=== PATIENT | male | born 1990 | race Caucasian/White ===

== ENCOUNTER 2017-11-15 12:53 | Emergency (ER) | payer OTHER, SELFPAY ==
[2017-11-15 13:07] VITALS: BP 137/90; PULSE 92; RESP 20; TEMP 36.6; O2SAT 98; BMI 40.1
--- NOTE | 2017-11-15 13:30 | HMH.EDUTC ---
[facility] [place] Disposition Clinical Impression: Pain, dental Disposition: Home, Self-Care Condition on Discharge: Good Instructions: DI for Dental Pain Additional Instructions: Take medication as prescribed Return if needed Follow up with family doctor/dentist IZAIAH for further treatment and evaluation Warm/cold compresses to jaw may help with swelling and pain Call dentist office after leaving [facility] to try to make appointment Prescriptions: Ibuprofen [Ibuprofen 600mg Tab] 600 mg PO Q6H PRN #20 tab PRN Reason: Moderate Pain Penicillin V Potassium 500 mg PO QID #28 tab Referrals: Provider,Referral, [Primary Care Provider] - Edwin Walsh [Referring] - Time of Disposition: 13:39 Medical Decision Making - Medical Records Medical records reviewed: Yes: I reviewed the patient's medical records. Vital Signs: 11/15/17 13:07 Temperature 98 F Temperature Source Temporal Artery Scan Pulse Rate [Right] 92 H Respiratory Rate 20 Blood Pressure [Right Arm] 137/90 Blood Pressure Mean [Right Arm] 105 Blood Pressure Source [Right Arm] Automatic Cuff Blood Pressure Position [Right Arm] Sitting 02 Sat by Pulse Oximetry 98 Oxygen Delivery Method Room Air - Maksim Inquiry Pt receiving controlled substance: No Maksim was queried for this patient: No [facility] [place] HPI - General Stated complaint: Left bottom jaw pain Mode of Arrival: Ambulatory Source of Information: Patient Limitations: No Limitations Description of Symptoms (Recalled from Triage Doc. by RN): dental pain x2 days HEENT Symptoms (Recalled from RN notes): No Resp Symptoms (Recalled from RN notes): No Skin Symptoms (Recalled from RN notes): No MS Symptoms (Recalled from RN notes): No Functional Status (Recalled from RN notes): N - History of Present Illness Provider Complaint: Patient states that he has a wisdom tooth coming in and it is cutting into his left lower jaw area States that he feels like it is infected State that he is having swelling and pain States that he feel like he may have the flu also State that he kne if he didn't come in the dentist couldnt do anything for his tooth - Related Data Previous Rx's Medication Instructions Recorded Ibuprofen [Ibuprofen 600mg Tab] 600 mg PO Q6H PRN #20 tab 11/15/17 Penicillin V Potassium 500 mg PO QID #28 tab 11/15/17 Allergies Allergy/AdvReac Type Severity Reaction Status Date / Time No Known Allergies Allergy Verified 11/15/17 13:15 - Worker's Comp Is this a Worker's Comp case?: No [facility] History I have reviewed the patient's past medical history: Yes Laterality Cases: Bilateral: Tonsillectomy - *Social History Smoking Status: Current every day smoker Tobacco Type: cigarettes Alcohol Intake: never - Psychiatric History Expresses thoughts of harming self/others: None Suicide Plan Description: No Plan ROS Obtained: Yes All systems reviewed & no additional complaints - Constitutional Constitutional: Reports chills - ENT Ears, Nose, Mouth, and Throat: Reports dental pain, Reports sore throat Physical Exam - General General appearance: alert, in no apparent distress - Expanded ENT Exam Teeth exam: Present: other (Left lower jaw pain/dental pain, observed wisdom tooth coming in and cutting into jaw area, surrounding skin red, inflammed and swollen) - Respiratory Respiratory exam: Present: normal lung sounds bilaterally. Absent: respiratory distress - Cardiovascular Cardiovascular exam: Present: regular rate, normal rhythm. Absent: JVD - Abdominal Exam Abdominal exam: Present: soft, normal bowel sounds. Absent: distention, tenderness, guarding - Neurological Exam Neurological exam: Present: alert, oriented X3
--- NOTE | 2017-11-15 13:33 | ED_ITS ---
[facility] [place] Disposition Clinical Impression: Pain, dental Disposition: Home, Self-Care Condition on Discharge: Good Instructions: DI for Dental Pain Additional Instructions: Take medication as prescribed Return if needed Follow up with family doctor/dentist IZAIAH for further treatment and evaluation Warm/cold compresses to jaw may help with swelling and pain Call dentist office after leaving [facility] to try to make appointment Prescriptions: Ibuprofen [Ibuprofen 600mg Tab] 600 mg PO Q6H PRN #20 tab PRN Reason: Moderate Pain Penicillin V Potassium 500 mg PO QID #28 tab Referrals: Provider,Referral, [Primary Care Provider] - Edwin Walsh [Referring] - Time of Disposition: 13:39 Medical Decision Making - Medical Records Medical records reviewed: Yes: I reviewed the patient's medical records. Vital Signs: 11/15/17 13:07 Temperature 98 F Temperature Source Temporal Artery Scan Pulse Rate [Right] 92 H Respiratory Rate 20 Blood Pressure [Right Arm] 137/90 Blood Pressure Mean [Right Arm] 105 Blood Pressure Source [Right Arm] Automatic Cuff Blood Pressure Position [Right Arm] Sitting 02 Sat by Pulse Oximetry 98 Oxygen Delivery Method Room Air - Maksim Inquiry Pt receiving controlled substance: No Maksim was queried for this patient: No [facility] [place] HPI - General Stated complaint: Left bottom jaw pain Mode of Arrival: Ambulatory Source of Information: Patient Limitations: No Limitations Description of Symptoms (Recalled from Triage Doc. by RN): dental pain x2 days HEENT Symptoms (Recalled from RN notes): No Resp Symptoms (Recalled from RN notes): No Skin Symptoms (Recalled from RN notes): No MS Symptoms (Recalled from RN notes): No Functional Status (Recalled from RN notes): N - History of Present Illness Provider Complaint: Patient states that he has a wisdom tooth coming in and it is cutting into his left lower jaw area States that he feels like it is infected State that he is having swelling and pain States that he feel like he may have the flu also State that he kne if he didn't come in the dentist couldnt do anything for his tooth - Related Data Previous Rx's Medication Instructions Recorded Ibuprofen [Ibuprofen 600mg Tab] 600 mg PO Q6H PRN #20 tab 11/15/17 Penicillin V Potassium 500 mg PO QID #28 tab 11/15/17 Allergies Allergy/AdvReac Type Severity Reaction Status Date / Time No Known Allergies Allergy Verified 11/15/17 13:15 - Worker's Comp Is this a Worker's Comp case?: No [facility] History I have reviewed the patient's past medical history: Yes Laterality Cases: Bilateral: Tonsillectomy - *Social History Smoking Status: Current every day smoker Tobacco Type: cigarettes Alcohol Intake: never - Psychiatric History Expresses thoughts of harming self/others: None Suicide Plan Description: No Plan ROS Obtained: Yes All systems reviewed & no additional complaints - Constitutional Constitutional: Reports chills - ENT Ears, Nose, Mouth, and Throat: Reports dental pain, Reports sore throat Physical Exam - General General appearance: alert, in no apparent distress - Expanded ENT Exam Teeth exam: Present: other (Left lower jaw pain/dental pain, observed wisdom tooth coming in and cutting into jaw area, surrounding skin red, inflammed and swollen) - Respiratory Respiratory ex
[2017-11-15 13:46] VITALS: BP 130/90; PULSE 90; RESP 20; TEMP 36.6
[2017-11-15 14:04] LABS: UTC Influenza A Antigen Negative (Negative); UTC Influenza B Antigen Negative (Negative)
== END 2017-11-15 13:47 | disposition home or self-care (01) ==
PROVIDERS: Emergency Provider Nurse Practitioner
DX: K08.89 Other specified disorders of teeth and supporting structures (principal); R22.0 Localized swelling, mass and lump, head
CPT/HCPCS: 87804; 99202